=== PATIENT | male | born 1990 | race Caucasian/White ===

== ENCOUNTER 2024-02-18 13:34 | Observation (INO) ==
--- NOTE | 2024-02-18 13:51 | DR.EXTPAIN ---
HPI Time seen Time Seen by Provider: 02/18/24 13:50 Complaint/Symptoms Chief Complaint Doctor Comments: 33-year-old male presents with redness swelling and pain of the right ankle region. Denies any recent trauma. Has a history of distant traumatic injury to the right ankle, with subsequent ORIF, then pin removal, then fusion of the right ankle. Was fishing this past week, no known trauma to the ankle (standing in a craig). Started developing redness and swelling of the right ankle region. Has rapidly worsened over the past few days.. Swelling now creeping up the [place] area, with redness. Is hot and tender to touch. Did have fever last p.m. with shaking chills. Denies upper respiratory symptoms, bowel or bladder issues. Worse with palpation and ambulation. Nothing makes it better. Chief Complaint:: Patient states yesterday he noticed redness/swelling noted to the right foot/leg area along with pain and running a low grade fever. redness radiates from the toes up right below the knee. Self Treatment fo Chief Complaint: tylenol, asa COVID-19 Coronavirus risk:travel/contact w/high risk person: No Has patient experienced Coronavirus symptoms: No Nurses notes reviewed Nurses Notes Review: Yes Source History Provided: Patient Mode of arrival Mode of Arrival: Ambulatory Timing Onset of Chief Complaint: 02/17/24 PMH PMH Past Medical History: No Past Surgical History: No Family History History of Family Medical Conditions: Yes Family Medical History: Diabetes Mellitus and Hypertension Social History Does patient currently use any type of tobacco product: No Have you used tobacco products in the last 12 months: No Type of Tobacco Use: None Does any household member use tobacco: No Alcohol Use: None Do you use any recreational Drugs:: No Lives With: Family Lives Where: Home Travel Risk Coronavirus risk:travel/contact w/high risk person: No Has patient experienced Coronavirus symptoms: No Infectious screening In the last 2 months have you had wt loss of >10#?: NO Have you had fever, night sweats or hemotysis?: No Have you traveled outside the country in the last 6 months?: No Isolation: Standard ROS Review of Systems Constitutional: Chills and Fever Eyes: No Symptoms Reported ENTM: No Symptoms Reported Respiratoy: No Symptoms Reported Cardiovascular: No Symptoms Reported Gastrointestinal/Abdominal: No Symptoms Reported Genitourinary: No Symptoms Reported Neurological: No Symptoms Reported Musculoskeletal: No Symptoms Reported Integumentary: See HPI All Other Systems: Reviewed and Negative PE Vital Signs Vitals: Vital Signs Temperature 99.0 F Pulse Rate 98 Respiratory Rate 20 Blood Pressure 161/73 O2 Sat by Pulse Oximetry 95 General General Appearance: Alert and In No Apparent Distress Eyes Eye exam: PERRL and EOMI ENT ENT Exam: Mucous Membranes Moist Neck Neck Exam: Normal Inspection Respiratory Respiratory Exam: Normal Lung Sounds Bilat; negative Accessory Muscle Use or Respiratory Distress Cardiovascular Cardiovascular Exam: Regular Rate, Normal Rhythm and Normal Heart Sounds Lower Extremities Lower Leg Exam: Swelling (RLE, 3+ pitting edema. + confluent erythema of anterior R ankle, 1/[address] up [place]. + tender) Neurological Neurological Exam: Alert, Oriented X3 and CN II-XII Intact; negative Motor Sensory Deficit Skin Skin Exam: Warm and Dry COURSE Treatment Treatment: 33-year-old male presents with probable cellulitis of the right ankle/lower leg region. No known trauma. Does have a distant history of surgery of the area. Workup initiated. X-rays without acute bony abnormality, gas formation. White count markedly elevated 26,400. Chemistries acceptable, lactic acid 1.4. Patient given IV clindamycin, 600 mg here. Patient with a rapidly worsening right lower extremity cellulitis, associated with fever and chills. Recommend admission for further continuation of IV antibiotics. Discussed with Dr Arellano, covering for admissions, accepts the admission. ROR Labs Reviewed Laboratory Results Reviewed?: Yes 02/18/24 14:05 02/18/24 14:05 Laboratory: WBC 26.4 X10^3/uL (3.6-10.0) H 02/18/24 14:05 RBC 4.59 X10^6/uL (4.7-6.0) L 02/18/24 14:05 Hgb 14.1 g/dL (13.5-18.0) 02/18/24 14:05 Hct 42.8 % (42.0-54.0) 02/18/24 14:05 MCV 93.3 fL (80.0-100.0) 02/18/24 14:05 MCH 30.6 pg (27.0-34.0) 02/18/24 14:05 MCHC 32.9 g/dL (33.0-35.0) L 02/18/24 14:05 RDW 14.6 % (11.6-16.5) 02/18/24 14:05 Plt Count 240 X10^3/uL (150.0-450.0) 02/18/24 14:05 Plt Count Comment Adequate (ADEQUATE) 02/18/24 14:05 MPV 8.0 fL (7.4-11.0) 02/18/24 14:05 Neut % (Auto) 89.1 % (42.0-75.0) H 02/18/24 14:05 Lymph % (Auto) 5.0 % (21.0-51.0) L 02/18/24 14:05 [place] % (Auto) 5.6 % (0.0-13.0) 02/18/24 14:05 Eos % (Auto) 0.0 % (0.9-2.9) L 02/18/24 14:05 Baso % (Auto) 0.3 % (0.2-1.0) 02/18/24 14:05 Neut # (Auto) 23.6 x10^3/uL (2.2-4.8) H 02/18/24 14:05 Lymph # (Auto) 1.3 X10^3/uL (1.3-2.9) 02/18/24 14:05 [place] # (Auto) 1.5 x10^3/uL (0.3-0.8) H 02/18/24 14:05 Eos # (Auto) 0.0 x10^3/uL (0.0-0.2) 02/18/24 14:05 Baso # (Auto) 0.1 X10^3/uL (0.0-0.1) 02/18/24 14:05 Absolute Nucleated RBC 0.0 /100WBC 02/18/24 14:05 Total Counted 100 02/18/24 14:05 Neutrophils % (Manual) 88 % (39-76) H 02/18/24 14:05 Lymphocytes % (Manual) 7 % (13-43) L 02/18/24 14:05 Monocytes % (Manual) 5 % (4-9) 02/18/24 14:05 Plt Morphology Comment Normal (NORMAL) 02/18/24 14:05 RBC Morphology Normal (NORMAL) 02/18/24 14:05 Sodium 136 mmol/L (136-145) 02/18/24 14:05 Corrected Sodium TNP 02/18/24 14:05 Potassium 3.5 mmol/L (3.5-5.1) 02/18/24 14:05 Chloride 101 mmol/L (98-107) 02/18/24 14:05 Carbon Dioxide 25.9 mmol/L (21-32) 02/18/24 14:05 BUN 8 mg/dL (7-18) 02/18/24 14:05 Creatinine 0.96 mg/dL (0.70-1.30) 02/18/24 14:05 Est GFR (MDRD) Af Amer > 60 (>60) 02/18/24 14:05 Est GFR (MDRD) Non-Af > 60 (>60) 02/18/24 14:05 Glucose 94 mg/dL (65-99) 02/18/24 14:05 Lactic Acid 1.4 mmol/L (0.4-2.0) 02/18/24 14:05 Calcium 8.3 mg/dL (8.5-10.1) L 02/18/24 14:05 Corrected Calcium 9.1 mg/dL (8.5-10.1) 02/18/24 14:05 Total Bilirubin 0.70 mg/dL (0.2-1.0) 02/18/24 14:05 AST 23 Units/L (15-37) 02/18/24 14:05 ALT 45 Units/L (12-78) 02/18/24 14:05 Alkaline Phosphatase 56 Units/L (46-116) 02/18/24 14:05 Total Protein 6.9 g/dL (6.4-8.2) 02/18/24 14:05 Albumin 3.0 g/dL (3.4-5.0) L 02/18/24 14:05 Globulin 3.9 g/dL (2.5-4.5) 02/18/24 14:05 Albumin/Globulin Ratio 0.8 Ratio (1.1-2.1) L 02/18/24 14:05 Lipase 26 Units/L (16-77) 02/18/24 14:05 WBC 26K XRAY XRAY Interpreted by: Both X-ray Results: No acute bony abnormality Opioid Opioid Risk Tool Age (Josr box if 16-45): Yes History of Preadolescent Sexual Abuse: No Total: 1 Total Score Risk Category: Low Risk Copyright: Joseph GHOTRA predicting aberrant behaviors Discharge Plan Diagnosis Discharge Problem: Cellulitis of right lower extremity Discharge Plan Patient Disposition: 09 ADMITTED INPATIENT Condition: Stable Prescriptions: No Action [facility] Concerns: Post Hospitalization: new medications and changes needed to prevent readmission or further decline. Pt educated and given instructions on all concerns. Plan of Treatment: Continue with present treatment and follow up plan. Pt is to keep follow up appointment as instructed and take medications as ordered. Orders to Discharge Patient Discharge Orders: Transfer (Routine); Ordered 02/18/24 Ordered By: Kingsley Rothman Follow ups/Referrals Follow ups/Referrals: [facility],None [Primary Care Provider] - 3 days
[2024-02-18 14:40] LABS: BASOPHILS # (AUTO) 0.1 X10^3/uL (0.0-0.1); BASOPHILS % (AUTO) 0.3 % (0.2-1.0); HEMATOCRIT 42.8 % (42.0-54.0); HEMOGLOBIN 14.1 g/dL (13.5-18.0); LYMPHOCYTES # (AUTO) 1.3 X10^3/uL (1.3-2.9); MEAN CORPUSCULAR HEMOGLOBIN 30.6 pg (27.0-34.0); MEAN CORPUSCULAR HGB CONC 32.9 g/dL (33.0-35.0); MEAN CORPUSCULAR VOLUME 93.3 fL (80.0-100.0); MONOCYTES # (AUTO) 1.5 x10^3/uL (0.3-0.8); MONOCYTES % (AUTO) 5.6 % (0.0-13.0); NEUTROPHILS # (AUTO) 23.6 x10^3/uL (2.2-4.8); NEUTROPHILS % (AUTO) 89.1 % (42.0-75.0); PLATELET COUNT 240 X10^3/uL (150.0-450.0); RED BLOOD COUNT 4.59 X10^6/uL (4.7-6.0); RED CELL DISTRIBUTION WIDTH 14.6 % (11.6-16.5); WHITE BLOOD COUNT 26.4 X10^3/uL (3.6-10.0)
[2024-02-18 14:54] LABS: ALANINE AMINOTRANSFERASE 45 Units/L (12-78); ALKALINE PHOSPHATASE 56 Units/L (46-116); ASPARTATE AMINO TRANSFERASE 23 Units/L (15-37); BLOOD UREA NITROGEN 8 mg/dL (7-18); CALCIUM 8.3 mg/dL (8.5-10.1); CARBON DIOXIDE 25.9 mmol/L (21-32); CHLORIDE 101 mmol/L (98-107); COR CA(FOR HYPOALB) 9.1 mg/dL (8.5-10.1); CREATININE 0.96 mg/dL (0.70-1.30); GLUCOSE 94 mg/dL (65-99); LIPASE 26 Units/L (16-77); POTASSIUM 3.5 mmol/L (3.5-5.1); SODIUM 136 mmol/L (136-145); TOTAL PROTEIN 6.9 g/dL (6.4-8.2); eGFR NON BLACK RACES > 60 (>60)
[2024-02-18 14:58] LABS: PLATELET MORPHOLOGY COMMENT NORMAL (NORMAL)
--- NOTE | 2024-02-18 15:40 | RAD ---
EXAM:ANKLE, RIGHTHISTORY:swelling, infection; ORTHOCOMPARISON:No relevant prior studies available.TECHNIQUE:ankle radiographs, 3 viewsFINDINGS:Tibiotalar fusion. Hardware is intact. No acute fracture or dislocation. Heel spur..Degenerative changes including dorsal midfoot osteophytes. Soft tissues are unremarkableIMPRESSION:No acute fracture or dislocationTHIS IS AN ELECTRONICALLY VERIFIED FINAL REPORT02/18/2024 3:37 PM - Electronically signed by Kee Mcclain MD
[2024-02-18] MEDS: CLEOCIN 600 MG IV PREMIX 600 MG/50 ML BAG IV SCH (15:49)
[2024-02-18] MEDS ORDERED: TYLENOL 500 MG TAB EXTRA STRENGTH PO ONE (17:54)
[2024-02-18] MEDS ORDERED: TORADOL 30 MG VIAL ONE (17:54)
[2024-02-18] MEDS: TORADOL 30 MG VIAL IVP ONE (17:59)
[2024-02-18] MEDS: TYLENOL 500 MG TAB EXTRA STRENGTH PO ONE (18:00)
[2024-02-18] MEDS ORDERED: MORPHINE SULFATE INJ 4 MG IVP PRN (21:55)
[2024-02-18] MEDS ORDERED: ZOFRAN INJ 4 MG VIAL IVP PRN (21:55)
[2024-02-18] MEDS ORDERED: CONSULT PHARMACY - POTASSIUM & MAGNESIUM XX SCH (21:55)
[2024-02-18 21:57] VITALS: BMI 53.3
[2024-02-18] MEDS ORDERED: CLEOCIN 600 MG IV PREMIX 600 MG/50 ML BAG IV SCH (22:00)
[2024-02-18] MEDS ORDERED: K-DUR TAB 20 MEQ PO SCH (23:00)
[2024-02-19 06:26] LABS: BASOPHILS # (AUTO) 0.1 X10^3/uL (0.0-0.1); BASOPHILS % (AUTO) 0.5 % (0.2-1.0); EOSINOPHILS % (AUTO) 0.1 % (0.9-2.9); HEMOGLOBIN 13.6 g/dL (13.5-18.0); LYMPHOCYTES # (AUTO) 1.1 X10^3/uL (1.3-2.9); LYMPHOCYTES % (AUTO) 5.4 % (21.0-51.0); MEAN CORPUSCULAR HEMOGLOBIN 30.9 pg (27.0-34.0); MEAN CORPUSCULAR HGB CONC 33.1 g/dL (33.0-35.0); MEAN CORPUSCULAR VOLUME 93.2 fL (80.0-100.0); MEAN PLATELET VOLUME 8.4 fL (7.4-11.0); MONOCYTES # (AUTO) 1.2 x10^3/uL (0.3-0.8); MONOCYTES % (AUTO) 6.3 % (0.0-13.0); NEUTROPHILS # (AUTO) 17.4 x10^3/uL (2.2-4.8); NEUTROPHILS % (AUTO) 87.7 % (42.0-75.0); PLATELET COUNT 226 X10^3/uL (150.0-450.0); RED CELL DISTRIBUTION WIDTH 14.3 % (11.6-16.5); WHITE BLOOD COUNT 19.9 X10^3/uL (3.6-10.0)
[2024-02-19 06:46] LABS: ALANINE AMINOTRANSFERASE 36 Units/L (12-78); ALBUMIN 2.7 g/dL (3.4-5.0); ALKALINE PHOSPHATASE 55 Units/L (46-116); ASPARTATE AMINO TRANSFERASE 16 Units/L (15-37); BLOOD UREA NITROGEN 11 mg/dL (7-18); CALCIUM 8.7 mg/dL (8.5-10.1); CARBON DIOXIDE 27.5 mmol/L (21-32); CHLORIDE 101 mmol/L (98-107); COR CA(FOR HYPOALB) 9.7 mg/dL (8.5-10.1); CREATININE 1.07 mg/dL (0.70-1.30); GLUCOSE 108 mg/dL (65-99); MAGNESIUM 1.9 mg/dL (2.0-2.9); POTASSIUM 3.8 mmol/L (3.5-5.1); SODIUM 136 mmol/L (136-145); TOTAL PROTEIN 6.9 g/dL (6.4-8.2); eGFR NON BLACK RACES > 60 (>60)
[2024-02-19] MEDS: TYLENOL 325 MG TAB PO PRN (11:45)
--- NOTE | 2024-02-19 14:29 | VAS ---
EXAM:LEVBILBCHBilateral lower extremity DVT ultrasound examination with Doppler imaging.HISTORY:R/O DVT; . Evaluate for evidence for DVT.Bilateral lower extremity pain and swelling.COMPARISON:NoneTECHNIQUE:Ultras ound of the deep venous vasculature of the bilateral lower extremities was performed.Color and spectral doppler imaging was utilized for the purposes of this examination as well.FINDINGS:The deep veins of both lower extremities are normal in size and configuration. No intraluminal filling defects are seen on grayscale or color flow imaging.The veins compress normally. Doppler waveforms are normal at rest and with augmentation.IMPRESSION:Negative bilateral lower extremity DVT ultrasound exam(s).THIS IS AN ELECTRONICALLY VERIFIED FINAL REPORT02/19/2024 2:26 PM - Electronically signed by Sanya Benavides MD
[2024-02-19] MEDS: K-DUR TAB 20 MEQ PO ONE (16:53)
[2024-02-19] MEDS: LASIX IVP ONE (16:55)
--- NOTE | 2024-02-19 19:22 | DR.H&P ---
H&P History & Physical for Day of: H&P Date: 02/18/24 Chief Complaint Chief Complaint: PAIN, REDNESS AND SWELLING TO RLE History of Present Illness History of Present Illness: 33-year-old male presents with redness swelling and pain of the right ankle region. Denies any recent trauma. Has a history of distant traumatic injury to the right ankle, with subsequent ORIF, then pin removal, then fusion of the right ankle. Was fishing this past week, no known trauma to the ankle (standing in a craig). Started developing redness and swelling of the right ankle region. Has rapidly worsened over the past few days.. Swelling now creeping up the [place] area, with redness. Is hot and tender to touch. Did have fever last p.m. with shaking chills. Denies upper respiratory symptoms, bowel or bladder issues. Worse with palpation and ambulation. Nothing makes it better. Past Surgical History Surgical History: Other Family History Family Medical History: Diabetes Mellitus Social History Does patient currently use any type of tobacco product: Yes Have you used tobacco products in the last 12 months: No Type of Tobacco Use: Cigarettes Does any household member use tobacco: No Alcohol Use: None Drug Use: None Medications Home Medications: Home Medications Medication Instructions Recorded Confirmed Type NK 02/18/24 02/18/24 History Allergies Allergies Allergy/AdvReac Type Severity Reaction Status Date / Time banana Allergy Intermediate ANAPHALEXIS Verified 02/18/24 23:40 REACTION No Known Drug Allergies Allergy Verified 03/16/22 06:49 Labs 02/19/24 05:20 02/19/24 05:20 Labs: Laboratory WBC 19.9 X10^3/uL (3.6-10.0) H 02/19/24 05:20 RBC 4.40 X10^6/uL (4.7-6.0) L 02/19/24 05:20 Hgb 13.6 g/dL (13.5-18.0) 02/19/24 05:20 Hct 41.0 % (42.0-54.0) L 02/19/24 05:20 MCV 93.2 fL (80.0-100.0) 02/19/24 05:20 MCH 30.9 pg (27.0-34.0) 02/19/24 05:20 MCHC 33.1 g/dL (33.0-35.0) 02/19/24 05:20 RDW 14.3 % (11.6-16.5) 02/19/24 05:20 Plt Count 226 X10^3/uL (150.0-450.0) 02/19/24 05:20 Plt Count Comment Adequate (ADEQUATE) 02/18/24 14:05 MPV 8.4 fL (7.4-11.0) 02/19/24 05:20 Neut % (Auto) 87.7 % (42.0-75.0) H 02/19/24 05:20 Lymph % (Auto) 5.4 % (21.0-51.0) L 02/19/24 05:20 [place] % (Auto) 6.3 % (0.0-13.0) 02/19/24 05:20 Eos % (Auto) 0.1 % (0.9-2.9) L 02/19/24 05:20 Baso % (Auto) 0.5 % (0.2-1.0) 02/19/24 05:20 Neut # (Auto) 17.4 x10^3/uL (2.2-4.8) H 02/19/24 05:20 Lymph # (Auto) 1.1 X10^3/uL (1.3-2.9) L 02/19/24 05:20 [place] # (Auto) 1.2 x10^3/uL (0.3-0.8) H 02/19/24 05:20 Eos # (Auto) 0.0 x10^3/uL (0.0-0.2) 02/19/24 05:20 Baso # (Auto) 0.1 X10^3/uL (0.0-0.1) 02/19/24 05:20 Absolute Nucleated RBC 0.0 /100WBC 02/19/24 05:20 Total Counted 100 02/18/24 14:05 Neutrophils % (Manual) 88 % (39-76) H 02/18/24 14:05 Lymphocytes % (Manual) 7 % (13-43) L 02/18/24 14:05 Monocytes % (Manual) 5 % (4-9) 02/18/24 14:05 Plt Morphology Comment Normal (NORMAL) 02/18/24 14:05 RBC Morphology Normal (NORMAL) 02/18/24 14:05 ESR 61 MM/HOUR (0-15) H 02/19/24 05:20 Sodium 136 mmol/L (136-145) 02/19/24 05:20 Corrected Sodium TNP 02/19/24 05:20 Potassium 3.8 mmol/L (3.5-5.1) 02/19/24 05:20 Chloride 101 mmol/L (98-107) 02/19/24 05:20 Carbon Dioxide 27.5 mmol/L (21-32) 02/19/24 05:20 BUN 11 mg/dL (7-18) 02/19/24 05:20 Creatinine 1.07 mg/dL (0.70-1.30) 02/19/24 05:20 Est GFR (MDRD) Af Amer > 60 (>60) 02/19/24 05:20 Est GFR (MDRD) Non-Af > 60 (>60) 02/19/24 05:20 Glucose 108 mg/dL (65-99) H 02/19/24 05:20 Lactic Acid 1.4 mmol/L (0.4-2.0) 02/18/24 14:05 Calcium 8.7 mg/dL (8.5-10.1) 02/19/24 05:20 Corrected Calcium 9.7 mg/dL (8.5-10.1) 02/19/24 05:20 Magnesium 1.9 mg/dL (2.0-2.9) L 02/19/24 05:20 Total Bilirubin 0.50 mg/dL (0.2-1.0) 02/19/24 05:20 AST 16 Units/L (15-37) 02/19/24 05:20 ALT 36 Units/L (12-78) 02/19/24 05:20 Alkaline Phosphatase 55 Units/L (46-116) 02/19/24 05:20 C-Reactive Protein 243.50 mg/L (0-3.0) H 02/19/24 05:20 Total Protein 6.9 g/dL (6.4-8.2) 02/19/24 05:20 Albumin 2.7 g/dL (3.4-5.0) L 02/19/24 05:20 Globulin 4.2 g/dL (2.5-4.5) 02/19/24 05:20 Albumin/Globulin Ratio 0.6 Ratio (1.1-2.1) L 02/19/24 05:20 Lipase 26 Units/L (16-77) 02/18/24 14:05 Review of Systems Constitutional: Malaise Eyes: No Symptoms Reported ENT: No Symptoms Reported Respiratory: No Symptoms Reported Cardiovascular: Edema Gastrointestinal: No Symptoms Reported Genitourinary: No Symptoms Reported Musculoskeletal: Leg Pain and Foot Pain Skin: Wound and Other (REDNESS TO RLE) Neurological: No Symptoms Reported Physical Exam Vital Signs: Vital Signs Temperature 98.2 F Temperature 97.1 F Pulse Rate [Bilateral Radial] 95 Pulse Rate [Bilateral Radial] 93 Respiratory Rate 20 Respiratory Rate 20 Respiratory Rate 20 Blood Pressure [Right Arm] 125/68 Blood Pressure [Right Arm] 132/76 O2 Sat by Pulse Oximetry 96 O2 Sat by Pulse Oximetry 96 Oriented: Normal Eyes: Normal Ear: Normal Nose: Normal Throat: Normal Respiratory: RLL Diminished and LLL Diminished Cardiovascular: Edema (+4 RLE, + 2 LLE) : Normal Auscultation: Bowel Sounds: Normal Palpation: Normal Tenderness: Normal Skin: Red, Tender and Wound Musculoskeletal: Right, Leg, Ankle, Foot, Swelling and Tender Psychiatric: Normal Mood Description: Calm Affect: Normal Speech Pattern: Clear and Appropriate Assessment/Plan (1) Cellulitis of right lower extremity: Narrative Support Text: ADMIT, BLOOD CULTURES ON ADMISSION WOUND CULTURE IF DRAINAGE PRESENT ELEVATE LE, IV CLINDAMYCIN VERIFY HOME MEDICATION PAIN CONTROL, XRAY RLE ON ADMISSION Status: Acute (2) Osteoarth NOS-ankle: Status: Acute (3) Morbid obesity: Status: Acute (4) Edema of both legs: Status: Acute
--- NOTE | 2024-02-19 19:28 | PCM.PROG ---
Progress Note Progress Note for Day of Date of Exam: 02/19/24 Subjective Subjective: 33-year-old male, ER admission with complaints of redness swelling and pain of the right ankle region. Denies any recent trauma. Has a history of distant traumatic injury to the right ankle, with subsequent ORIF, then pin removal, then fusion of the right ankle. Was fishing this past week, no known trauma to the ankle (standing in a craig). Started developing redness and swelling of the right ankle region. Has rapidly worsened over the past few days. Swelling now creeping up the [place] area, with redness. Is hot and tender to touch. Did have fever last p.m. with shaking chills. Denies upper respiratory symptoms, bowel or bladder issues. Worse with palpation and ambulation. Nothing makes it better. Pt Denies any PMH of diabetes or DVTs. Pt had blood cultures on admission and started on IV clindamycin and pain control. Pts WBCs down to 19.9 on am labs,BUN 11, Creat 1.07. Pt reports controlled pain and this time, but severe with ambulation. Pt reports keeping lower extremity elevated. CRP and Sed rate added to am labs. US of bilateral lower extremities obtained to ro DVT. Past Medical Family Social History Allergies: Allergies banana Allergy (Intermediate, Verified 02/18/24 23:40) ANAPHALEXIS REACTION No Known Drug Allergies Allergy (Verified 03/16/22 06:49) Vital Signs and I&O's Vital Signs: Vital Signs Temperature 98.2 F Temperature 97.1 F Pulse Rate [Bilateral Radial] 95 Pulse Rate [Bilateral Radial] 93 Respiratory Rate 20 Respiratory Rate 20 Respiratory Rate 20 Blood Pressure [Right Arm] 125/68 Blood Pressure [Right Arm] 132/76 O2 Sat by Pulse Oximetry 96 O2 Sat by Pulse Oximetry 96 Intake and Output: Intake & Output 02/17/24 02/18/24 02/19/24 02/20/24 11:59 11:59 11:59 11:59 Intake Total 200 / 200 1584 / 1584 Balance 200 / 200 1584 / 1584 Physical Exam Oriented: Normal Eyes: Normal Ear: Normal Nose: Normal Throat: Normal Respiratory: Diminished Cardiovascular: Edema (+4 RLE, + 2 LLE) : Normal Auscultation: Bowel Sounds: Normal Tenderness: Normal Skin: Red, Tender and Wound Musculoskeletal: Right, Leg, Ankle, Foot, Swelling and Tender Psychiatric: Normal Mood Description: Calm Affect: Normal Speech Pattern: Clear and Appropriate Laboratory and Diagnostics 02/19/24 05:20 02/19/24 05:20 Labs: Laboratory WBC 19.9 X10^3/uL (3.6-10.0) H 02/19/24 05:20 RBC 4.40 X10^6/uL (4.7-6.0) L 02/19/24 05:20 Hgb 13.6 g/dL (13.5-18.0) 02/19/24 05:20 Hct 41.0 % (42.0-54.0) L 02/19/24 05:20 MCV 93.2 fL (80.0-100.0) 02/19/24 05:20 MCH 30.9 pg (27.0-34.0) 02/19/24 05:20 MCHC 33.1 g/dL (33.0-35.0) 02/19/24 05:20 RDW 14.3 % (11.6-16.5) 02/19/24 05:20 Plt Count 226 X10^3/uL (150.0-450.0) 02/19/24 05:20 Plt Count Comment Adequate (ADEQUATE) 02/18/24 14:05 MPV 8.4 fL (7.4-11.0) 02/19/24 05:20 Neut % (Auto) 87.7 % (42.0-75.0) H 02/19/24 05:20 Lymph % (Auto) 5.4 % (21.0-51.0) L 02/19/24 05:20 [place] % (Auto) 6.3 % (0.0-13.0) 02/19/24 05:20 Eos % (Auto) 0.1 % (0.9-2.9) L 02/19/24 05:20 Baso % (Auto) 0.5 % (0.2-1.0) 02/19/24 05:20 Neut # (Auto) 17.4 x10^3/uL (2.2-4.8) H 02/19/24 05:20 Lymph # (Auto) 1.1 X10^3/uL (1.3-2.9) L 02/19/24 05:20 [place] # (Auto) 1.2 x10^3/uL (0.3-0.8) H 02/19/24 05:20 Eos # (Auto) 0.0 x10^3/uL (0.0-0.2) 02/19/24 05:20 Baso # (Auto) 0.1 X10^3/uL (0.0-0.1) 02/19/24 05:20 Absolute Nucleated RBC 0.0 /100WBC 02/19/24 05:20 Total Counted 100 02/18/24 14:05 Neutrophils % (Manual) 88 % (39-76) H 02/18/24 14:05 Lymphocytes % (Manual) 7 % (13-43) L 02/18/24 14:05 Monocytes % (Manual) 5 % (4-9) 02/18/24 14:05 Plt Morphology Comment Normal (NORMAL) 02/18/24 14:05 RBC Morphology Normal (NORMAL) 02/18/24 14:05 ESR 61 MM/HOUR (0-15) H 02/19/24 05:20 Sodium 136 mmol/L (136-145) 02/19/24 05:20 Corrected Sodium TNP 02/19/24 05:20 Potassium 3.8 mmol/L (3.5-5.1) 02/19/24 05:20 Chloride 101 mmol/L (98-107) 02/19/24 05:20 Carbon Dioxide 27.5 mmol/L (21-32) 02/19/24 05:20 BUN 11 mg/dL (7-18) 02/19/24 05:20 Creatinine 1.07 mg/dL (0.70-1.30) 02/19/24 05:20 Est GFR (MDRD) Af Amer > 60 (>60) 02/19/24 05:20 Est GFR (MDRD) Non-Af > 60 (>60) 02/19/24 05:20 Glucose 108 mg/dL (65-99) H 02/19/24 05:20 Lactic Acid 1.4 mmol/L (0.4-2.0) 02/18/24 14:05 Calcium 8.7 mg/dL (8.5-10.1) 02/19/24 05:20 Corrected Calcium 9.7 mg/dL (8.5-10.1) 02/19/24 05:20 Magnesium 1.9 mg/dL (2.0-2.9) L 02/19/24 05:20 Total Bilirubin 0.50 mg/dL (0.2-1.0) 02/19/24 05:20 AST 16 Units/L (15-37) 02/19/24 05:20 ALT 36 Units/L (12-78) 02/19/24 05:20 Alkaline Phosphatase 55 Units/L (46-116) 02/19/24 05:20 C-Reactive Protein 243.50 mg/L (0-3.0) H 02/19/24 05:20 Total Protein 6.9 g/dL (6.4-8.2) 02/19/24 05:20 Albumin 2.7 g/dL (3.4-5.0) L 02/19/24 05:20 Globulin 4.2 g/dL (2.5-4.5) 02/19/24 05:20 Albumin/Globulin Ratio 0.6 Ratio (1.1-2.1) L 02/19/24 05:20 Lipase 26 Units/L (16-77) 02/18/24 14:05 Plan (1) Cellulitis of right lower extremity: Status: Acute Plan: IV CLINDAMYCIN, PAIN CONTROL IV LASIX 40 WITH PO POTASSIUM REPLACEMENT WITH I&OS US LOWER EXTREMITIES CRP, SED RATE REPEAT AM LABS, CULTURES PENDING (2) Osteoarth NOS-ankle: Status: Acute (3) Morbid obesity: Status: Acute (4) Edema of both legs: Status: Acute
[2024-02-19] MEDS: ULTRAM PO PRN (20:18)
[2024-02-20 06:24] LABS: BASOPHILS % (AUTO) 0.3 % (0.2-1.0); EOSINOPHILS % (AUTO) 0.3 % (0.9-2.9); HEMATOCRIT 40.1 % (42.0-54.0); HEMOGLOBIN 13.1 g/dL (13.5-18.0); LYMPHOCYTES # (AUTO) 1.6 X10^3/uL (1.3-2.9); LYMPHOCYTES % (AUTO) 10.1 % (21.0-51.0); MEAN CORPUSCULAR HEMOGLOBIN 30.4 pg (27.0-34.0); MEAN CORPUSCULAR HGB CONC 32.8 g/dL (33.0-35.0); MEAN CORPUSCULAR VOLUME 92.9 fL (80.0-100.0); MEAN PLATELET VOLUME 8.5 fL (7.4-11.0); MONOCYTES # (AUTO) 1.4 x10^3/uL (0.3-0.8); MONOCYTES % (AUTO) 9.3 % (0.0-13.0); NEUTROPHILS # (AUTO) 12.5 x10^3/uL (2.2-4.8); PLATELET COUNT 239 X10^3/uL (150.0-450.0); RED BLOOD COUNT 4.32 X10^6/uL (4.7-6.0); RED CELL DISTRIBUTION WIDTH 14.4 % (11.6-16.5); WHITE BLOOD COUNT 15.6 X10^3/uL (3.6-10.0)
[2024-02-20 06:38] LABS: ALANINE AMINOTRANSFERASE 35 Units/L (12-78); ALBUMIN 2.5 g/dL (3.4-5.0); ALKALINE PHOSPHATASE 64 Units/L (46-116); ASPARTATE AMINO TRANSFERASE 19 Units/L (15-37); BLOOD UREA NITROGEN 9 mg/dL (7-18); CALCIUM 8.5 mg/dL (8.5-10.1); CARBON DIOXIDE 26.6 mmol/L (21-32); CHLORIDE 102 mmol/L (98-107); COR CA(FOR HYPOALB) 9.7 mg/dL (8.5-10.1); GLUCOSE 100 mg/dL (65-99); HEMOGLOBIN A1C 5.9 %; POTASSIUM 3.4 mmol/L (3.5-5.1); SODIUM 137 mmol/L (136-145); TOTAL PROTEIN 7.2 g/dL (6.4-8.2); eGFR NON BLACK RACES > 60 (>60)
[2024-02-20] MEDS ORDERED: CONSULT PHARMACY - POTASSIUM & MAGNESIUM XX SCH (07:00)
[2024-02-20] MEDS ORDERED: LOMOTIL PO PRN (09:04)
[2024-02-20] MEDS: K-DUR TAB 20 MEQ PO SCH (09:56)
[2024-02-20] MEDS: COZAAR PO SCH (09:57)
[2024-02-20] MEDS: VSL#3 PROBIOTIC CAP 112.5 B PO SCH (09:57)
[2024-02-20] MEDS: LASIX IVP ONE (09:58)
--- NOTE | 2024-02-20 17:55 | PCM.PROG ---
Progress Note Progress Note for Day of Date of Exam: 02/20/24 Subjective Subjective: 33-year-old male, ER admission with complaints of redness swelling and pain of the right ankle region. Denies any recent trauma. Has a history of distant traumatic injury to the right ankle, with subsequent ORIF, then pin removal, then fusion of the right ankle. Was fishing this past week, no known trauma to the ankle (standing in a [place]). Started developing redness and swelling of the right ankle region. Has rapidly worsened over the past few days. Swelling now creeping up the [place] area, with redness. Is hot and tender to touch. Did have fever last p.m. with shaking chills. Denies upper respiratory symptoms, bowel or bladder issues. Worse with palpation and ambulation. Nothing makes it better. Pt Denies any PMH of diabetes or DVTs. Pt had blood cultures on admission and started on IV clindamycin and pain control. Pts WBCs down to 15.5 on am labs,BPt reports controlled pain and this time, but severe with ambulation. Pt reports keeping lower extremity elevated. CRP and Sed rateto am labs. US of bilateral lower extremities obtained to ro DVT was negative. Pt was hypertensive this am and over the night. Pt started on losartan 25mg po daily this am. Past Medical Family Social History Allergies: Allergies banana Allergy (Intermediate, Verified 02/18/24 23:40) ANAPHALEXIS REACTION No Known Drug Allergies Allergy (Verified 03/16/22 06:49) Vital Signs and I&O's Vital Signs: Vital Signs Temperature 98.4 F Temperature 98.3 F Pulse Rate [Bilateral Radial] 89 Pulse Rate [Bilateral Radial] 92 Respiratory Rate 18 Respiratory Rate 18 Blood Pressure [Right Arm] 145/78 Blood Pressure [Right Arm] 131/80 O2 Sat by Pulse Oximetry 96 O2 Sat by Pulse Oximetry 96 Intake and Output: Intake & Output 02/18/24 02/19/24 02/20/24 02/21/24 11:59 11:59 11:59 11:59 Intake Total 200 / 200 2693 / 2693 960 / 960 Balance 200 / 200 2693 / 2693 960 / 960 Physical Exam Oriented: Normal Eyes: Normal Ear: Normal Nose: Normal Throat: Normal Respiratory: Diminished Cardiovascular: Edema (+4 RLE, + 2 LLE) : Normal Auscultation: Bowel Sounds: Normal Tenderness: Normal Skin: Red, Tender and Wound Musculoskeletal: Right, Leg, Ankle, Foot, Swelling and Tender Psychiatric: Normal Mood Description: Calm Affect: Normal Speech Pattern: Clear and Appropriate Laboratory and Diagnostics 02/20/24 05:29 02/20/24 05:29 Labs: 02/18/24 14:05 Blood Blood Culture - Preliminary 02/18/24 14:08 Blood Blood Culture - Preliminary Laboratory WBC 15.6 X10^3/uL (3.6-10.0) H 02/20/24 05:29 RBC 4.32 X10^6/uL (4.7-6.0) L 02/20/24 05:29 Hgb 13.1 g/dL (13.5-18.0) L 02/20/24 05:29 Hct 40.1 % (42.0-54.0) L 02/20/24 05:29 MCV 92.9 fL (80.0-100.0) 02/20/24 05:29 MCH 30.4 pg (27.0-34.0) 02/20/24 05:29 MCHC 32.8 g/dL (33.0-35.0) L 02/20/24 05:29 RDW 14.4 % (11.6-16.5) 02/20/24 05:29 Plt Count 239 X10^3/uL (150.0-450.0) 02/20/24 05:29 Plt Count Comment Adequate (ADEQUATE) 02/18/24 14:05 MPV 8.5 fL (7.4-11.0) 02/20/24 05:29 Neut % (Auto) 80.0 % (42.0-75.0) H 02/20/24 05:29 Lymph % (Auto) 10.1 % (21.0-51.0) L 02/20/24 05:29 [place] % (Auto) 9.3 % (0.0-13.0) 02/20/24 05:29 Eos % (Auto) 0.3 % (0.9-2.9) L 02/20/24 05:29 Baso % (Auto) 0.3 % (0.2-1.0) 02/20/24 05:29 Neut # (Auto) 12.5 x10^3/uL (2.2-4.8) H 02/20/24 05:29 Lymph # (Auto) 1.6 X10^3/uL (1.3-2.9) 02/20/24 05:29 [place] # (Auto) 1.4 x10^3/uL (0.3-0.8) H 02/20/24 05:29 Eos # (Auto) 0.0 x10^3/uL (0.0-0.2) 02/20/24 05:29 Baso # (Auto) 0.0 X10^3/uL (0.0-0.1) 02/20/24 05:29 Absolute Nucleated RBC 0.0 /100WBC 02/20/24 05:29 Total Counted 100 02/18/24 14:05 Neutrophils % (Manual) 88 % (39-76) H 02/18/24 14:05 Lymphocytes % (Manual) 7 % (13-43) L 02/18/24 14:05 Monocytes % (Manual) 5 % (4-9) 02/18/24 14:05 Plt Morphology Comment Normal (NORMAL) 02/18/24 14:05 RBC Morphology Normal (NORMAL) 02/18/24 14:05 ESR 97 MM/HOUR (0-15) H 02/20/24 05:29 Sodium 137 mmol/L (136-145) 02/20/24 05:29 Corrected Sodium TNP 02/20/24 05:29 Potassium 3.4 mmol/L (3.5-5.1) L 02/20/24 05:29 Chloride 102 mmol/L (98-107) 02/20/24 05:29 Carbon Dioxide 26.6 mmol/L (21-32) 02/20/24 05:29 BUN 9 mg/dL (7-18) 02/20/24 05:29 Creatinine 0.90 mg/dL (0.70-1.30) 02/20/24 05:29 Est GFR (MDRD) Af Amer > 60 (>60) 02/20/24 05:29 Est GFR (MDRD) Non-Af > 60 (>60) 02/20/24 05:29 Glucose 100 mg/dL (65-99) H 02/20/24 05:29 Hemoglobin A1c 5.9 % 02/20/24 05:29 Lactic Acid 1.4 mmol/L (0.4-2.0) 02/18/24 14:05 Calcium 8.5 mg/dL (8.5-10.1) 02/20/24 05:29 Corrected Calcium 9.7 mg/dL (8.5-10.1) 02/20/24 05:29 Magnesium 2.0 mg/dL (2.0-2.9) 02/20/24 05:29 Total Bilirubin 0.40 mg/dL (0.2-1.0) 02/20/24 05:29 AST 19 Units/L (15-37) 02/20/24 05:29 ALT 35 Units/L (12-78) 02/20/24 05:29 Alkaline Phosphatase 64 Units/L (46-116) 02/20/24 05:29 C-Reactive Protein 216.50 mg/L (0-3.0) H 02/20/24 05:29 Total Protein 7.2 g/dL (6.4-8.2) 02/20/24 05:29 Albumin 2.5 g/dL (3.4-5.0) L 02/20/24 05:29 Globulin 4.7 g/dL (2.5-4.5) H 02/20/24 05:29 Albumin/Globulin Ratio 0.5 Ratio (1.1-2.1) L 02/20/24 05:29 Lipase 26 Units/L (16-77) 02/18/24 14:05 Plan (1) Cellulitis of right lower extremity: Status: Acute Plan: IV CLINDAMYCIN, PAIN CONTROL IV LASIX 40 WITH PO POTASSIUM REPLACEMENT WITH I&OS US LOWER EXTREMITIES CRP, SED RATE REPEAT AM LABS, CULTURES PENDING (2) Osteoarth NOS-ankle: Status: Acute (3) Morbid obesity: Status: Acute (4) Edema of both legs: Status: Acute
[2024-02-21 06:02] LABS: BASOPHILS # (AUTO) 0.1 X10^3/uL (0.0-0.1); BASOPHILS % (AUTO) 0.7 % (0.2-1.0); EOSINOPHILS # (AUTO) 0.1 x10^3/uL (0.0-0.2); EOSINOPHILS % (AUTO) 1.1 % (0.9-2.9); HEMATOCRIT 40.5 % (42.0-54.0); HEMOGLOBIN 13.3 g/dL (13.5-18.0); LYMPHOCYTES # (AUTO) 1.7 X10^3/uL (1.3-2.9); LYMPHOCYTES % (AUTO) 13.1 % (21.0-51.0); MEAN CORPUSCULAR HEMOGLOBIN 30.6 pg (27.0-34.0); MEAN CORPUSCULAR HGB CONC 32.9 g/dL (33.0-35.0); MEAN PLATELET VOLUME 8.3 fL (7.4-11.0); MONOCYTES # (AUTO) 1.1 x10^3/uL (0.3-0.8); MONOCYTES % (AUTO) 8.6 % (0.0-13.0); NEUTROPHILS # (AUTO) 9.8 x10^3/uL (2.2-4.8); NEUTROPHILS % (AUTO) 76.5 % (42.0-75.0); PLATELET COUNT 279 X10^3/uL (150.0-450.0); RED BLOOD COUNT 4.35 X10^6/uL (4.7-6.0); RED CELL DISTRIBUTION WIDTH 14.4 % (11.6-16.5); WHITE BLOOD COUNT 12.8 X10^3/uL (3.6-10.0)
[2024-02-21 06:06] LABS: ALANINE AMINOTRANSFERASE 44 Units/L (12-78); ALBUMIN 2.5 g/dL (3.4-5.0); ALKALINE PHOSPHATASE 61 Units/L (46-116); ASPARTATE AMINO TRANSFERASE 28 Units/L (15-37); BLOOD UREA NITROGEN 9 mg/dL (7-18); CALCIUM 8.6 mg/dL (8.5-10.1); CARBON DIOXIDE 27.5 mmol/L (21-32); CHLORIDE 102 mmol/L (98-107); COR CA(FOR HYPOALB) 9.8 mg/dL (8.5-10.1); CREATININE 0.88 mg/dL (0.70-1.30); GLUCOSE 97 mg/dL (65-99); MAGNESIUM 2.2 mg/dL (2.0-2.9); POTASSIUM 3.7 mmol/L (3.5-5.1); SODIUM 140 mmol/L (136-145); TOTAL PROTEIN 7.3 g/dL (6.4-8.2); eGFR NON BLACK RACES > 60 (>60)
[2024-02-21] MEDS ORDERED: CONSULT PHARMACY - POTASSIUM & MAGNESIUM XX SCH (07:00)
[2024-02-21] MEDS ORDERED: NORCO 5/325 MG TAB PO PRN (09:06)
[2024-02-21] MEDS: NS 1,000 ML IV 1,000 ML IV SCH (10:59)
--- NOTE | 2024-02-21 17:55 | MRI ---
EXAM: MRI RIGHT ANKLE WITHOUT AND WITH CONTRAST HISTORY: RIGHT ANKLE PAIN/ R/O CELLULITIS CONTRAST MULTIHANCE 20CC INJECTED INTO LEFT HAND ; COMPARISON: Ankle radiograph February 18, 2000 24. TECHNIQUE: Multisequence, multiplanar MR images were acquired through the right ankle without and with intraven ous contrast. Informed written consent was obtained prior to contrast administration. FINDINGS: MUSCLE/SOFT TISSUE: Diffuse soft tissue swelling noted about the distal leg and ankle. Muscle bulk a ppears within normal limits. Metallic artifact arising from ankle arthrodesis obscures the adjacent osseous and soft tissue structures. No visualized drainable fluid collection. Patchy enhancement of the skin and subcutaneous fat about the ankle suggests cellulitis. No discrete drainable fluid william ection identified. BONE: Metallic artifact at the ankle obscures the adjacent osseous structures. No aggressive bone ma rrow replacement process. No definite evidence of osteomyelitis. Incomplete osseous fusion noted at the ankle. TENDONS: The posterior tibialis, flexor digitorum longus, and flexor hallucis longus tendons are norm al. The peroneal tendons and superior peroneal retinaculum are normal. The anterior ankle extensors are normal. Mild distal Achilles tendinopathy. Mild retrocalcaneal bursitis. Chronic findings of p lantar fasciitis. LIGAMENTS: Deltoid is obscured by metallic artifact. 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 JOINT SPACE: Instrumented arthrodesis noted at the ankle with full-thickness chondrosis. No definite osseous bridging. Mild subtalar and midfoot osteoarthritis. Trace subtalar joint effusion, likely reactive. IMPRESSION: 1. Cellulitis is noted at the distal leg and ankle. No drainable fluid collection or evidence of ost eomyelitis. Instrumented arthrodesis of the ankle without evidence of osseous bridging. THIS IS AN ELECTRONICALLY VERIFIED FINAL REPORT 02/21/2024 5:52 PM - Electronically signed by Javier Latham MD
[2024-02-21] MEDS: MULTIHANCE INJ VIAL ONE (19:42)
[2024-02-21] MEDS: K-DUR TAB 20 MEQ PO SCH ×2 (19:43)
--- NOTE | 2024-02-21 20:01 | DR.CONSULT ---
CONSULT Consultation for Day of: Date: 02/21/24 Chief Complaint Chief Complaint: right LE cellulitis and infection Allergies Allergies Allergy/AdvReac Type Severity Reaction Status Date / Time banana Allergy Intermediate ANAPHALEXIS Verified 02/18/24 23:40 REACTION No Known Drug Allergies Allergy Verified 03/16/22 06:49 History of Present Illness History of Present Illness: 33 male with recent hx of travel to [facility] for fishing as well as recent [place] developed right LE cellulitis and pain prompting admission to [facility] early this week. patietn found to have elevated WBC and was starts on IV abx. swelling and redness have improved significantly. Past Surgical History Surgical History: Other Family History Family Medical History: Diabetes Mellitus Social History Does patient currently use any type of tobacco product: Yes Have you used tobacco products in the last 12 months: No Type of Tobacco Use: Cigarettes Does any household member use tobacco: No Alcohol Use: None Drug Use: None Medications Home Medications: banana Allergy (Intermediate, Verified 02/18/24 23:40) ANAPHALEXIS REACTION No Known Drug Allergies Allergy (Verified 03/16/22 06:49) CONTINUE taking the following medications NK 02/18/24 [History] Physical Exam Vital Signs: Vital Signs Temperature 98.0 F Temperature 98.2 F Pulse Rate [Bilateral Radial] 82 Pulse Rate [Bilateral Radial] 78 Respiratory Rate 20 Respiratory Rate 20 Blood Pressure [Right Arm] 173/83 Blood Pressure [Right Arm] 137/82 O2 Sat by Pulse Oximetry 92 O2 Sat by Pulse Oximetry 96 Musculoskeletal: Leg (right leg with erythema from mid leg to ankle. has no pitting. has increased calor. has pain posterior ankle from gastroc muscle to heel. has pain circumfrential at the ankle joint. no motion due to fusion.) Plan (1) Cellulitis of right lower extremity: Status: Acute Plan: MRI reviewed. showing no abscess. no osteo. suggestion about no osseous bridging of the ankle. hardware however without lucency to suggest this CT better for eval of non union and patient without any issues prior to this so suspect unable to see fusion due to streak artifact. I suspect infection likely streptococcal in nature due to location, and likely obtained from water. had hx of pos swollen lymph nodes a couple weeks ago in neck that he noticed. has responded to clinda. recommend continue and would recommend D/c on clinda and perhaps PCN derivative likely augmentin as well. I would recommend lab check in 1 week. he does not have a PCP. i am happy to see him in [place] or can see clinician in [place] for these if easier, discussed with him. He does not need any surgical intervention at this time. Thank you for the consult. If any questions please call my cell [phone] (2) Osteoarth NOS-ankle: Status: Acute (3) Morbid obesity: Status: Acute (4) Edema of both legs: Status: Acute
[2024-02-22 05:24] LABS: BASOPHILS # (AUTO) 0.1 X10^3/uL (0.0-0.1); BASOPHILS % (AUTO) 0.8 % (0.2-1.0); EOSINOPHILS # (AUTO) 0.2 x10^3/uL (0.0-0.2); HEMATOCRIT 41.6 % (42.0-54.0); HEMOGLOBIN 13.9 g/dL (13.5-18.0); LYMPHOCYTES # (AUTO) 1.9 X10^3/uL (1.3-2.9); MEAN CORPUSCULAR HEMOGLOBIN 30.9 pg (27.0-34.0); MEAN CORPUSCULAR HGB CONC 33.3 g/dL (33.0-35.0); MEAN CORPUSCULAR VOLUME 92.7 fL (80.0-100.0); MEAN PLATELET VOLUME 7.8 fL (7.4-11.0); MONOCYTES % (AUTO) 9.5 % (0.0-13.0); NEUTROPHILS # (AUTO) 7.5 x10^3/uL (2.2-4.8); NEUTROPHILS % (AUTO) 69.7 % (42.0-75.0); PLATELET COUNT 326 X10^3/uL (150.0-450.0); RED BLOOD COUNT 4.49 X10^6/uL (4.7-6.0); RED CELL DISTRIBUTION WIDTH 14.4 % (11.6-16.5); WHITE BLOOD COUNT 10.7 X10^3/uL (3.6-10.0)
[2024-02-22 05:35] LABS: ALANINE AMINOTRANSFERASE 56 Units/L (12-78); ALBUMIN 2.4 g/dL (3.4-5.0); ALKALINE PHOSPHATASE 60 Units/L (46-116); ASPARTATE AMINO TRANSFERASE 35 Units/L (15-37); BLOOD UREA NITROGEN 10 mg/dL (7-18); CALCIUM 8.6 mg/dL (8.5-10.1); CARBON DIOXIDE 26.8 mmol/L (21-32); CHLORIDE 104 mmol/L (98-107); COR CA(FOR HYPOALB) 9.9 mg/dL (8.5-10.1); CREATININE 0.84 mg/dL (0.70-1.30); GLUCOSE 91 mg/dL (65-99); MAGNESIUM 2.1 mg/dL (2.0-2.9); POTASSIUM 3.9 mmol/L (3.5-5.1); SODIUM 140 mmol/L (136-145); TOTAL PROTEIN 7.2 g/dL (6.4-8.2); eGFR NON BLACK RACES > 60 (>60)
--- NOTE | 2024-02-22 08:59 | NOTE.SOAP ---
Soap Note Note for Day of Date of Exam: 02/22/24 Subjective Data Subjective Data: Patient states pain is improving when compared to yesterday. Also states he is able to walk around more on it as well. Objective Data Objective Data: Right Lower Extremity Exam: Pulses intact. CFT WNL to all digits. Markings noted about the leg consistent with marker to monitor the changes in redness. Swelling appears to be decreased when compared to prior examination, redness is also improving. Assessment Assessment: Cellulitis, Right Lower Extremity Plan Plan: - MRI suggests no osseous bridging but there is noted artifact about the MRI and unable to full evaluate. A CT would be appropriate, do not think he warrants one. - We suspect a infection about the right lower extremity likely a soft tissue infection such as a cellulitis possibly from streptococcal in nature. - We will continue to monitor his swelling, temperature changes, and redness to the RLE. - Recommend continuing Clindamycin and upon discharge would recommend clindamycin with possible Augmentin as well. - Patient does not have a PCP, recommend he obtains one. - We can follow-up with him in [place] or he can see a clinician in [place]. - Lab recheck in 1 week. - Does not warrant any surgical intervention at this time.
[2024-02-22] MEDS: COZAAR PO SCH (09:01)
--- NOTE | 2024-02-22 11:32 | PCM.PROG ---
Progress Note Progress Note for Day of Date of Exam: 02/22/24 Subjective Subjective: Pt is a 33-year-old male admitted for right lower extremity cellulitis and now bacteremia. This morning he is resting in bed. No acute events overnight. Labs/imaging: WBC 10.7, hemoglobin 13.9, platelets 326, sodium 140, potassium 3.9, creatinine 0.84, glucose 91, MRI was obtained that revealed: Cellulitis is noted at the distal leg and ankle. No drainable fluid collection or evidence of osteomyelitis. Blood culture 1/2 positive for gram negative rods. Will repeat blood cultures today. Pt is currently on antibiotics: Clindamycin, will add Ciprofloxacin. Otherwise, continue with current treatment plan. Continue to closely monitor and follow up labs in the morning. Past Medical Family Social History Allergies: Allergies banana Allergy (Intermediate, Verified 02/18/24 23:40) ANAPHALEXIS REACTION No Known Drug Allergies Allergy (Verified 03/16/22 06:49) Review of Systems ROS changes noted: see HPI Vital Signs and I&O's Vital Signs: Vital Signs Temperature 97.8 F Temperature 97.9 F Pulse Rate [Bilateral Radial] 84 Pulse Rate [Bilateral Radial] 86 Respiratory Rate 20 Respiratory Rate 18 Blood Pressure [Right Arm] 135/67 Blood Pressure [Right Arm] 178/84 O2 Sat by Pulse Oximetry 96 O2 Sat by Pulse Oximetry 94 Intake and Output: Intake & Output 02/19/24 02/20/24 02/21/24 02/22/24 23:59 23:59 23:59 23:59 Intake Total 1840 / 1840 2236 / 223 1007 / 1007 355 / 355 Balance 1840 / 1840 2235 / 223 1007 / 1007 355 / 355 Physical Exam Oriented: Normal Eyes: Normal Ear: Normal Nose: Normal Throat: Normal Respiratory: Diminished Cardiovascular: Edema (+2 RLE, + 2 LLE) : Normal Auscultation: Bowel Sounds: Normal Tenderness: Normal Skin: Red, Tender and Wound Psychiatric: Normal Mood Description: Calm Affect: Normal Speech Pattern: Clear and Appropriate Laboratory and Diagnostics 02/22/24 04:50 02/22/24 04:50 Labs: 02/18/24 14:05 Blood Blood Culture Gram Stain - Final 02/18/24 14:05 Blood Blood Culture - Preliminary 02/18/24 14:08 Blood Blood Culture - Preliminary Laboratory WBC 10.7 X10^3/uL (3.6-10.0) H 02/22/24 04:50 RBC 4.49 X10^6/uL (4.7-6.0) L 02/22/24 04:50 Hgb 13.9 g/dL (13.5-18.0) 02/22/24 04:50 Hct 41.6 % (42.0-54.0) L 02/22/24 04:50 MCV 92.7 fL (80.0-100.0) 02/22/24 04:50 MCH 30.9 pg (27.0-34.0) 02/22/24 04:50 MCHC 33.3 g/dL (33.0-35.0) 02/22/24 04:50 RDW 14.4 % (11.6-16.5) 02/22/24 04:50 Plt Count 326 X10^3/uL (150.0-450.0) 02/22/24 04:50 Plt Count Comment Adequate (ADEQUATE) 02/18/24 14:05 MPV 7.8 fL (7.4-11.0) 02/22/24 04:50 Neut % (Auto) 69.7 % (42.0-75.0) 02/22/24 04:50 Lymph % (Auto) 18.0 % (21.0-51.0) L 02/22/24 04:50 [place] % (Auto) 9.5 % (0.0-13.0) 02/22/24 04:50 Eos % (Auto) 2.0 % (0.9-2.9) 02/22/24 04:50 Baso % (Auto) 0.8 % (0.2-1.0) 02/22/24 04:50 Neut # (Auto) 7.5 x10^3/uL (2.2-4.8) H 02/22/24 04:50 Lymph # (Auto) 1.9 X10^3/uL (1.3-2.9) 02/22/24 04:50 [place] # (Auto) 1.0 x10^3/uL (0.3-0.8) H 02/22/24 04:50 Eos # (Auto) 0.2 x10^3/uL (0.0-0.2) 02/22/24 04:50 Baso # (Auto) 0.1 X10^3/uL (0.0-0.1) 02/22/24 04:50 Absolute Nucleated RBC 0.0 /100WBC 02/22/24 04:50 Total Counted 100 02/18/24 14:05 Neutrophils % (Manual) 88 % (39-76) H 02/18/24 14:05 Lymphocytes % (Manual) 7 % (13-43) L 02/18/24 14:05 Monocytes % (Manual) 5 % (4-9) 02/18/24 14:05 Plt Morphology Comment Normal (NORMAL) 02/18/24 14:05 RBC Morphology Normal (NORMAL) 02/18/24 14:05 ESR 97 MM/HOUR (0-15) H 02/20/24 05:29 Sodium 140 mmol/L (136-145) 02/22/24 04:50 Corrected Sodium TNP 02/22/24 04:50 Potassium 3.9 mmol/L (3.5-5.1) 02/22/24 04:50 Chloride 104 mmol/L (98-107) 02/22/24 04:50 Carbon Dioxide 26.8 mmol/L (21-32) 02/22/24 04:50 BUN 10 mg/dL (7-18) 02/22/24 04:50 Creatinine 0.84 mg/dL (0.70-1.30) 02/22/24 04:50 Est GFR (MDRD) Af Amer > 60 (>60) 02/22/24 04:50 Est GFR (MDRD) Non-Af > 60 (>60) 02/22/24 04:50 Glucose 91 mg/dL (65-99) 02/22/24 04:50 Hemoglobin A1c 5.9 % 02/20/24 05:29 Lactic Acid 1.4 mmol/L (0.4-2.0) 02/18/24 14:05 Calcium 8.6 mg/dL (8.5-10.1) 02/22/24 04:50 Corrected Calcium 9.9 mg/dL (8.5-10.1) 02/22/24 04:50 Magnesium 2.1 mg/dL (2.0-2.9) 02/22/24 04:50 Total Bilirubin 0.10 mg/dL (0.2-1.0) L 02/22/24 04:50 AST 35 Units/L (15-37) 02/22/24 04:50 ALT 56 Units/L (12-78) 02/22/24 04:50 Alkaline Phosphatase 60 Units/L (46-116) 02/22/24 04:50 C-Reactive Protein 216.50 mg/L (0-3.0) H 02/20/24 05:29 Total Protein 7.2 g/dL (6.4-8.2) 02/22/24 04:50 Albumin 2.4 g/dL (3.4-5.0) L 02/22/24 04:50 Globulin 4.8 g/dL (2.5-4.5) H 02/22/24 04:50 Albumin/Globulin Ratio 0.5 Ratio (1.1-2.1) L 02/22/24 04:50 Lipase 26 Units/L (16-77) 02/18/24 14:05 Plan (1) Cellulitis of right lower extremity: Status: Acute Plan: IV CLINDAMYCIN, ADD CIPRO. PAIN CONTROL IV LASIX 40 WITH PO POTASSIUM REPLACEMENT WITH I&OS CULTURES PENDING (2) Osteoarth NOS-ankle: Status: Acute (3) Morbid obesity: Status: Acute (4) Edema of both legs: Status: Acute (5) Bacteremia: Status: Acute
[2024-02-22] MEDS: CIPRO IV 400 MG PREMIX* 400 MG/200 ML IV.SOLN. IV SCH (20:20)
[2024-02-23 06:53] LABS: BASOPHILS # (AUTO) 0.1 X10^3/uL (0.0-0.1); BASOPHILS % (AUTO) 0.6 % (0.2-1.0); EOSINOPHILS # (AUTO) 0.3 x10^3/uL (0.0-0.2); EOSINOPHILS % (AUTO) 1.9 % (0.9-2.9); HEMATOCRIT 42.3 % (42.0-54.0); HEMOGLOBIN 13.9 g/dL (13.5-18.0); LYMPHOCYTES # (AUTO) 2.2 X10^3/uL (1.3-2.9); LYMPHOCYTES % (AUTO) 16.8 % (21.0-51.0); MEAN CORPUSCULAR HEMOGLOBIN 30.5 pg (27.0-34.0); MEAN CORPUSCULAR HGB CONC 32.8 g/dL (33.0-35.0); MEAN PLATELET VOLUME 7.7 fL (7.4-11.0); MONOCYTES # (AUTO) 1.1 x10^3/uL (0.3-0.8); MONOCYTES % (AUTO) 8.4 % (0.0-13.0); NEUTROPHILS # (AUTO) 9.4 x10^3/uL (2.2-4.8); NEUTROPHILS % (AUTO) 72.3 % (42.0-75.0); PLATELET COUNT 356 X10^3/uL (150.0-450.0); RED BLOOD COUNT 4.54 X10^6/uL (4.7-6.0); RED CELL DISTRIBUTION WIDTH 14.2 % (11.6-16.5)
[2024-02-23 07:04] LABS: ALANINE AMINOTRANSFERASE 60 Units/L (12-78); ALBUMIN 2.5 g/dL (3.4-5.0); ALKALINE PHOSPHATASE 56 Units/L (46-116); ASPARTATE AMINO TRANSFERASE 32 Units/L (15-37); BLOOD UREA NITROGEN 10 mg/dL (7-18); CALCIUM 8.6 mg/dL (8.5-10.1); CARBON DIOXIDE 26.6 mmol/L (21-32); CHLORIDE 105 mmol/L (98-107); COR CA(FOR HYPOALB) 9.8 mg/dL (8.5-10.1); CREATININE 0.86 mg/dL (0.70-1.30); GLUCOSE 91 mg/dL (65-99); SODIUM 141 mmol/L (136-145); TOTAL PROTEIN 7.2 g/dL (6.4-8.2); eGFR NON BLACK RACES > 60 (>60)
[2024-02-23 07:19] LABS: BASOPHILS % (MANUAL) 1 % (0-1)
[2024-02-23 07:21] LABS: PLATELET MORPHOLOGY COMMENT NORMAL (NORMAL)
--- NOTE | 2024-02-23 11:28 | PCM.PROG ---
Progress Note Progress Note for Day of Date of Exam: 02/23/24 Subjective Subjective: Pt is a 33-year-old male admitted for right lower extremity cellulitis and bacteremia. Patient is resting in bed this morning. No acute events overnight. Erythema continues to improve. Labs/imaging: WBC 13, hemoglobin 13.9, platelets 356, sodium 141, potassium 4.0, creatinine 0.86, glucose 91, MRI was obtained that revealed: Cellulitis is noted at the distal leg and ankle. No drainable fluid collection or evidence of osteomyelitis. Blood culture 1/2 positive for gram negative rods. Repeat blood cultures pending. Pt is currently on antibiotics: Clindamycin and Ciprofloxacin. Otherwise, continue with current treatment plan. Continue to closely monitor and follow up labs in the morning. Past Medical Family Social History Allergies: Allergies banana Allergy (Intermediate, Verified 02/18/24 23:40) ANAPHALEXIS REACTION No Known Drug Allergies Allergy (Verified 03/16/22 06:49) Review of Systems ROS changes noted: see HPI Vital Signs and I&O's Vital Signs: Vital Signs Temperature 97.4 F Temperature 98.1 F Pulse Rate [Bilateral Radial] 100 Pulse Rate [Bilateral Radial] 84 Respiratory Rate 20 Respiratory Rate 20 Blood Pressure [Right Arm] 147/92 Blood Pressure [Right Arm] 141/69 O2 Sat by Pulse Oximetry 96 O2 Sat by Pulse Oximetry 93 Intake and Output: Intake & Output 02/20/24 02/21/24 02/22/24 02/23/24 23:59 23:59 23:59 23:59 Intake Total 2235 / 2236 1007 / 1007 1055 / 1055 150 / 150 Balance 2235 / 223 1007 / 1007 1055 / 1055 150 / 150 Physical Exam Oriented: Normal Eyes: Normal Ear: Normal Nose: Normal Throat: Normal Respiratory: Diminished Cardiovascular: Edema (+2 RLE, + 2 LLE) : Normal Auscultation: Bowel Sounds: Normal Tenderness: Normal Skin: Red, Tender and Wound Musculoskeletal: Leg Psychiatric: Normal Mood Description: Calm Affect: Normal Speech Pattern: Clear and Appropriate Laboratory and Diagnostics 02/23/24 05:45 02/23/24 05:45 Labs: 02/18/24 14:05 Blood Blood Culture Gram Stain - Final 02/18/24 14:05 Blood Blood Culture - Preliminary 02/18/24 14:08 Blood Blood Culture - Preliminary Laboratory WBC 13.0 X10^3/uL (3.6-10.0) H 02/23/24 05:45 RBC 4.54 X10^6/uL (4.7-6.0) L 02/23/24 05:45 Hgb 13.9 g/dL (13.5-18.0) 02/23/24 05:45 Hct 42.3 % (42.0-54.0) 02/23/24 05:45 MCV 93.0 fL (80.0-100.0) 02/23/24 05:45 MCH 30.5 pg (27.0-34.0) 02/23/24 05:45 MCHC 32.8 g/dL (33.0-35.0) L 02/23/24 05:45 RDW 14.2 % (11.6-16.5) 02/23/24 05:45 Plt Count 356 X10^3/uL (150.0-450.0) 02/23/24 05:45 Plt Count Comment Adequate (ADEQUATE) 02/23/24 05:45 MPV 7.7 fL (7.4-11.0) 02/23/24 05:45 Neut % (Auto) 72.3 % (42.0-75.0) 02/23/24 05:45 Lymph % (Auto) 16.8 % (21.0-51.0) L 02/23/24 05:45 [place] % (Auto) 8.4 % (0.0-13.0) 02/23/24 05:45 Eos % (Auto) 1.9 % (0.9-2.9) 02/23/24 05:45 Baso % (Auto) 0.6 % (0.2-1.0) 02/23/24 05:45 Neut # (Auto) 9.4 x10^3/uL (2.2-4.8) H 02/23/24 05:45 Lymph # (Auto) 2.2 X10^3/uL (1.3-2.9) 02/23/24 05:45 [place] # (Auto) 1.1 x10^3/uL (0.3-0.8) H 02/23/24 05:45 Eos # (Auto) 0.3 x10^3/uL (0.0-0.2) H 02/23/24 05:45 Baso # (Auto) 0.1 X10^3/uL (0.0-0.1) 02/23/24 05:45 Absolute Nucleated RBC 0.1 /100WBC 02/23/24 05:45 Total Counted 100 02/23/24 05:45 Neutrophils % (Manual) 69 % (39-76) 02/23/24 05:45 Lymphocytes % (Manual) 19 % (13-43) 02/23/24 05:45 Monocytes % (Manual) 7 % (4-9) 02/23/24 05:45 Eosinophils % (Manual) 4 % (0-6) 02/23/24 05:45 Basophils % (Manual) 1 % (0-1) 02/23/24 05:45 Plt Morphology Comment Normal (NORMAL) 02/23/24 05:45 RBC Morphology Normal (NORMAL) 02/23/24 05:45 ESR 84 MM/HOUR (0-15) H 02/23/24 05:45 Sodium 141 mmol/L (136-145) 02/23/24 05:45 Corrected Sodium TNP 02/23/24 05:45 Potassium 4.0 mmol/L (3.5-5.1) 02/23/24 05:45 Chloride 105 mmol/L (98-107) 02/23/24 05:45 Carbon Dioxide 26.6 mmol/L (21-32) 02/23/24 05:45 BUN 10 mg/dL (7-18) 02/23/24 05:45 Creatinine 0.86 mg/dL (0.70-1.30) 02/23/24 05:45 Est GFR (MDRD) Af Amer > 60 (>60) 02/23/24 05:45 Est GFR (MDRD) Non-Af > 60 (>60) 02/23/24 05:45 Glucose 91 mg/dL (65-99) 02/23/24 05:45 Hemoglobin A1c 5.9 % 02/20/24 05:29 Lactic Acid 1.4 mmol/L (0.4-2.0) 02/18/24 14:05 Calcium 8.6 mg/dL (8.5-10.1) 02/23/24 05:45 Corrected Calcium 9.8 mg/dL (8.5-10.1) 02/23/24 05:45 Magnesium 2.1 mg/dL (2.0-2.9) 02/22/24 04:50 Total Bilirubin 0.20 mg/dL (0.2-1.0) 02/23/24 05:45 AST 32 Units/L (15-37) 02/23/24 05:45 ALT 60 Units/L (12-78) 02/23/24 05:45 Alkaline Phosphatase 56 Units/L (46-116) 02/23/24 05:45 C-Reactive Protein 39.50 mg/L (0-3.0) H 02/23/24 05:45 Total Protein 7.2 g/dL (6.4-8.2) 02/23/24 05:45 Albumin 2.5 g/dL (3.4-5.0) L 02/23/24 05:45 Globulin 4.7 g/dL (2.5-4.5) H 02/23/24 05:45 Albumin/Globulin Ratio 0.5 Ratio (1.1-2.1) L 02/23/24 05:45 Lipase 26 Units/L (16-77) 02/18/24 14:05 Plan (1) Cellulitis of right lower extremity: Status: Acute Plan: IV CLINDAMYCIN, AND CIPRO. PAIN CONTROL IV LASIX 40 WITH PO POTASSIUM REPLACEMENT WITH I&OS CULTURES PENDING (2) Osteoarth NOS-ankle: Status: Acute (3) Morbid obesity: Status: Acute (4) Edema of both legs: Status: Acute (5) Bacteremia: Status: Acute
[2024-02-23 19:26] VITALS: RESP 18
[2024-02-24 06:20] LABS: BASOPHILS # (AUTO) 0.1 X10^3/uL (0.0-0.1); BASOPHILS % (AUTO) 0.6 % (0.2-1.0); EOSINOPHILS # (AUTO) 0.3 x10^3/uL (0.0-0.2); EOSINOPHILS % (AUTO) 2.1 % (0.9-2.9); HEMATOCRIT 41.9 % (42.0-54.0); LYMPHOCYTES # (AUTO) 2.2 X10^3/uL (1.3-2.9); LYMPHOCYTES % (AUTO) 18.2 % (21.0-51.0); MEAN CORPUSCULAR HEMOGLOBIN 30.7 pg (27.0-34.0); MEAN CORPUSCULAR HGB CONC 33.3 g/dL (33.0-35.0); MEAN CORPUSCULAR VOLUME 92.2 fL (80.0-100.0); MEAN PLATELET VOLUME 7.4 fL (7.4-11.0); MONOCYTES # (AUTO) 0.8 x10^3/uL (0.3-0.8); NEUTROPHILS # (AUTO) 8.5 x10^3/uL (2.2-4.8); NEUTROPHILS % (AUTO) 72.1 % (42.0-75.0); PLATELET COUNT 362 X10^3/uL (150.0-450.0); RED BLOOD COUNT 4.54 X10^6/uL (4.7-6.0); RED CELL DISTRIBUTION WIDTH 14.2 % (11.6-16.5); WHITE BLOOD COUNT 11.8 X10^3/uL (3.6-10.0)
[2024-02-24 06:37] LABS: ALANINE AMINOTRANSFERASE 70 Units/L (12-78); ALBUMIN 2.6 g/dL (3.4-5.0); ALKALINE PHOSPHATASE 55 Units/L (46-116); ASPARTATE AMINO TRANSFERASE 36 Units/L (15-37); BAND NEUTROPHILS % 4 % (0-10); BLOOD UREA NITROGEN 8 mg/dL (7-18); CALCIUM 8.6 mg/dL (8.5-10.1); CARBON DIOXIDE 24.4 mmol/L (21-32); CHLORIDE 105 mmol/L (98-107); COR CA(FOR HYPOALB) 9.7 mg/dL (8.5-10.1); CREATININE 0.75 mg/dL (0.70-1.30); GLUCOSE 84 mg/dL (65-99); PLATELET MORPHOLOGY COMMENT NORMAL (NORMAL); SODIUM 140 mmol/L (136-145); TOTAL PROTEIN 7.1 g/dL (6.4-8.2); eGFR NON BLACK RACES > 60 (>60)
[2024-02-24 08:00] VITALS: BP 127/69; PULSE 82; TEMP 97.6; O2SAT 97
== END 2024-02-24 11:05 | disposition home or self-care (01) ==
LOC: U 13:34 → ER 13:34 → MED/SURG 19:23
PROVIDERS: ADMIT Internal Medicine; ATTEND Internal Medicine
DX: I10 Essential (primary) hypertension; M19.071 Primary osteoarthritis, right ankle and foot; R78.81 Bacteremia; L03.115 Cellulitis of right lower limb; Z87.828 Personal history of other (healed) physical injury and trauma; M72.2 Plantar fascial fibromatosis; M19.072 Primary osteoarthritis, left ankle and foot; E66.01 Morbid (severe) obesity due to excess calories; F17.210 Nicotine dependence, cigarettes, uncomplicated; R26.2 Difficulty in walking, not elsewhere classified; Z98.890 Other specified postprocedural states